=== PATIENT | female | born 1970 | race Caucasian/White ===

== ENCOUNTER 2018-01-25 23:51 | Emergency (ER) | payer OTHER ==
[~2018-01-25] VITALS: Ht 177.8 cm; Wt 90.7 kg
[~2018-01-25 23:51] MED LIST: ACETAMINOPHEN-1 EAC1 PO; CIPRO500 M1 PO; DAYQUIL; NORCO 5-325 TA1 EACH PO; PROAIR HFA8.5 GM INH; PROMETHAZINE12.5 M1 PO; TESSALON PERLE100 MG PO; TORADOL 10 MG T10 MG; ZOFRAN ODT4 MG SUBLING; ZPAK PO
[2018-01-26] MEDS ORDERED: CELEXA20 MG
[2018-01-26 00:29] LABS: ABSOLUTE BASOPHILS 0.1 thou/uL (0.0-0.2); ABSOLUTE EOSINOPHILS 0.4 thou/uL (0.0-0.7); ABSOLUTE LYMPHOCYTES 2.5 thou/uL (0.8-5.3); ABSOLUTE MONOCYTES 0.5 thou/uL (0.0-1.2); ABSOLUTE NEUTROPHILS 3.4 thou/uL (1.6-8.1); BASOPHILS 0.7 %; EOSINOPHILS 6.1 %; HEMATOCRIT 43.8 % (37.0-47.0); HEMOGLOBIN 14.5 gm/dL (12.0-15.0); LYMPHOCYTES 36.2 %; MCH 29.4 pg (26.0-34.0); MCV 89.1 fL (80.0-100.0); MONOCYTES 7.8 %; MPV 7.7 fl. (7.2-11.1); NUCLEATED RBCS 0 /100WBC; PLATELET COUNT* 250 thou/uL (150-400); POLYS 49.2 %; RBC 4.92 mil/uL (4.20-5.00); RDW-CV 13.8 % (10.5-14.5); WBC 6.9 thou/uL (4.0-11.0)
[2018-01-26 00:33] LABS: CALCIUM 9.4 mg/dL (8.5-10.1); CREATININE 1.1 mg/dL (0.6-1.3); POTASSIUM 3.4 mmol/L (3.5-5.1)
[2018-01-26 00:38] LABS: ALBUMIN 3.3 g/dL (3.4-5.0); TOTAL BILIRUBIN 0.5 mg/dL (<0.1-1.0); TOTAL PROTEIN 6.8 g/dL (6.4-8.2)
[2018-01-26] MEDS ORDERED: KEFLEX500 M1 PO (02:23)
[2018-01-26 02:35] VITALS: BP 122/76
== END 2018-01-26 02:39 | disposition home or self-care (01) ==
LOC: M.ERS 23:51
PROVIDERS: Family Medicine
DX: K11.20 Sialoadenitis, unspecified (principal); Z87.442 Personal history of urinary calculi; Z90.49 Acquired absence of other specified parts of digestive tract; Z90.710 Acquired absence of both cervix and uterus; Z88.0 Allergy status to penicillin

== ENCOUNTER 2018-08-14 19:26 | Emergency (ER) | payer OTHER ==
[~2018-08-14] VITALS: Ht 177.8 cm; Wt 95.3 kg
[~2018-08-14 19:26] MED LIST changes: +CELEXA20 MG; +KEFLEX500 M1 PO
[2018-08-14] MEDS ORDERED: LIPITOR 20 MG T20 M1 (19:39)
[2018-08-14] MEDS ORDERED: CLEOCIN HCL150 MG PO ×2 (20:10→20:11)
[2018-08-14] MEDS ORDERED: NORCO 5-325 TA1 EAC1 PO (20:10)
[2018-08-14 20:27] VITALS: BP 159/87
== END 2018-08-14 20:28 | disposition home or self-care (01) ==
LOC: M.ERS 19:26
DX: K04.7 Periapical abscess without sinus (principal); E78.00 Pure hypercholesterolemia, unspecified; Z88.0 Allergy status to penicillin; Z90.49 Acquired absence of other specified parts of digestive tract; Z90.710 Acquired absence of both cervix and uterus